=== PATIENT | female | born 1965 ===

== ENCOUNTER 2017-02-19 05:09 | Emergency (ER) | payer MEDICAID ==
[2017-02-19 05:27] VITALS: BP 158/78; PULSE 78; RESP 16; TEMP 98.8; O2SAT 98
--- NOTE | 2017-02-19 05:32 | ED PDOC ---
HPI: General Adult Time Seen by Provider: 02/19/17 05:17 Chief Complaint (Nursing): Lower Extremity Problem/Injury Chief Complaint (Provider): Ankle pain History Per: Patient Additional Complaint(s): Pt. states yesterday she was walking her dog when her dog pulled her causing her to fall down and strike her R ankle onto the ground. Pt. currently has a cast on her R leg as she has a "50% tear of plantar fascia." Reports that cast was placed on by Dr. Cm. Reports no surgery was done. Denies numbness , tingling, other injury. Past Medical History Reviewed: Historical Data, Nursing Documentation, Vital Signs Vital Signs: Last Vital Signs Temp 98.8 F 02/19/17 05:17 Pulse 78 02/19/17 05:17 Resp 16 02/19/17 05:17 BP 158/78 H 02/19/17 05:17 Pulse Ox 98 02/19/17 05:33 - Medical History PMH: Asthma, Bipolar Disorder, HTN, Hypercholesterolemia Denies: Chronic Kidney Disease - Surgical History Surgical History: Cholecystectomy - Family History Family History: States: No Known Family Hx - Home Medications Home Medications: Ambulatory Orders Medication Instructions Recorded Cefdinir 300 mg PO DAILY 10/01/14 Lurasidone HCl [Latuda] 120 mg PO HS 10/01/14 Metformin HCl 500 mg PO 10/01/14 Mometasone/Formoterol [Dulera 200 500 mg BID 10/01/14 Mcg/5 Mcg Inhaler] Tiotropium [place] [Spiriva] 18 IH 10/01/14 Tiotropium [place] [Spiriva] 18 mcg IH 10/01/14 Esomeprazole Magnesium [Nexium] 40 mg PO DAILY #28 ecc 10/07/16 - Allergies Allergies/Adverse Reactions: Allergies Allergy/AdvReac Type Severity Reaction Status Date / Time Penicillins Allergy RASH Verified 02/19/17 05:17 Review of Systems ROS Statement: Except As Marked, All Systems Reviewed And Found Negative Physical Exam - Physical Exam Appears: Positive for: Well, Non-toxic, No Acute Distress Skin: Positive for: Normal Color, Warm. Negative for: Rash Extremity: Positive for: Capillary Refill (cap refill < 2 seconds of RLE; distal sensation intact and equal), Other (R lower leg cast in place intact) - ECG O2 Sat by Pulse Oximetry: 98 - Progress ED Course And Treament: Ankle x-ray ordered Disposition - Clinical Impression Clinical Impression: Ankle injury - Patient ED Disposition Is Patient to be Admitted: Transfer of Care (Signed out to Dr. Vargas pending xray results.) - Disposition Disposition Time: 06:00 Condition: STABLE
--- NOTE | 2017-02-19 07:02 | ED PDOC ---
- ECG O2 Sat by Pulse Oximetry: 98 (RA) Pulse Ox Interpretation: Normal Medical Decision Making Medical Decision Makin:00 Patient signed out to Tae Vargas MD by SILVIO Call. 07:00 Patient evaluated by podiatry and cast was removed. 07:05 Upon provider reevaluation patient is feeling better, is medically stable, and requires no further treatment in the emergency department at this time. Patient will be discharged home. Counseling was provided and all questions were answered regarding diagnosis and referred to followup with her pediatrist as per podiatry's recommendation. Patient is in agreement with provider's discharge plan and was prompted to return if symptoms persist or worsen. Clinical Impression: Ankle sprain Scribe Attestation: Documented by Dagoberto De Jesus, acting as a scribe for Tae Vargas MD. Provider Scribe Attestation: All medical record entries made by the Scribe were at my direction and personally dictated by me. I have reviewed the chart and agree that the record accurately reflects my personal performance of the history, physical exam, medical decision making, and the department course for this patient. I have also personally directed, reviewed, and agree with the discharge instructions and disposition. Disposition - Clinical Impression Clinical Impression: Ankle sprain - POA Present On Arrival: Falls Or Trauma - Disposition Disposition: Routine/Home Disposition Time: 07:05 Condition: STABLE Instructions: Ankle Sprain (ED)
--- NOTE | 2017-02-19 07:22 | CP.PCM.CON ---
History of Present Illness - History of Present Illness History of Present Illness: 51 yo female patient presents to the ED this morning w/ chief complaint of right leg and ankle pain. Per pt she was walking her dog yesterday and fell to the ground and hit her right ankle. Of note patient says that she has had a "50 % plantar fascia tear" for the past several months, says she had a cast applied by her frame assembler Dr. Landen Reynolds. Says the cast is bothering her now after she fell yesterday. Denies any numbness or tingling or any other injuries. Review of Systems - Review of Systems Review of Systems: All systems reviewed and found to be negative w/ exception of pertinent HPI findings Past Patient History - Past Social History Smoking Status: Never Smoked - CARDIAC Hx Hypercholesterolemia: Yes Hx Hypertension: Yes - PULMONARY Hx Asthma: Yes - NEUROLOGICAL Hx Neurological Disorder: No - HEENT Hx HEENT Problems: No - RENAL Hx Chronic Kidney Disease: No - ENDOCRINE/METABOLIC Hx Diabetes Mellitus Type 2: Yes Other/Comment: Borderline DM - not on med - HEMATOLOGICAL/ONCOLOGICAL Hx Blood Disorders: Yes Hx Cancer: Yes (right breast cancer) Other/Comment: Lumpectomy in right breast - INTEGUMENTARY Hx Dermatological Problems: No - MUSCULOSKELETAL/RHEUMATOLOGICAL Hx Musculoskeletal Disorders: No - GASTROINTESTINAL Hx Gastrointestinal Disorders: Yes Other/Comment: Hernia - GENITOURINARY/GYNECOLOGICAL Hx Genitourinary Disorders: Yes Other/Comment: Left ovary removed - PSYCHIATRIC Hx Bipolar Disorder: Yes - SURGICAL HISTORY Hx Cholecystectomy: Yes - ANESTHESIA Hx Anesthesia: Yes Meds Allergies/Adverse Reactions: Allergies Allergy/AdvReac Type Severity Reaction Status Date / Time Penicillins Allergy RASH Verified 02/19/17 05:17 Physical Exam - Constitutional Appears: Well, Non-toxic, No Acute Distress - Extremities Exam Extremities exam: Negative for: calf tenderness Additional comments: RLE focused exam: Cast to right lower leg appears c/d/i Upon removal of cast: VASC- DP/PT pulses 2/4, skin temp wnl, cap. refill <3 sec to all digits, slight non-pitting edema noted to lateral ankle DERM- no open wounds, no erythema NEURO- gross pedal sensation is intact ORTHO- pt able to flex and extend all digits freely, tenderness on AJ DF and PF , tenderness to palp of ATFL, tenderness to palpation just posterior to distal fibula - Neurological Exam Neurological exam: Alert, CN II-XII Intact, Oriented x3 - Psychiatric Exam Psychiatric exam: Normal Affect, Normal Mood Results - Vital Signs Recent Vital Signs: Last Vital Signs Temp 98.8 F 02/19/17 05:17 Pulse 78 02/19/17 05:17 Resp 16 02/19/17 05:17 BP 158/78 H 02/19/17 05:17 Pulse Ox 98 02/19/17 07:18 Assessment & Plan - Assessment and Plan (Free Text) Assessment: 51 yo female w/ right leg pain secondary to ankle sprain Plan: Pt S&E at bedside in ED Discussed w/ attending Dr. Andrews and Dr. Vargas Cast removed and new posterior splint applied Advised patient to remain NWB with crutches, may use cast shoe to cover foot Advised pt to follow up w/ frame assembler Dr. Reynolds at the office Recommended rest, ice, elevation Stable per podiatry for D/C home
--- NOTE | 2017-02-19 10:40 | RAD ---
PROCEDURE: Right Ankle Radiographs. HISTORY: . Trauma COMPARISON: None FINDINGS: BONES: Crust obscures fine bony details. There is no acute displaced fracture. Bone alignment is normal. There is a prominent plantar calcaneal spur. JOINTS: Normal. Ankle mortise maintained. Talar dome intact SOFT TISSUES: Normal. OTHER FINDINGS: None. IMPRESSION: Crust obscures fine bony details. No acute displaced fracture or dislocation.
--- NOTE | 2017-02-19 10:43 | RAD ---
PROCEDURE: Radiographs of the right tibia and fibula. HISTORY: Trauma COMPARISON: None available. TECHNIQUE: Frontal and lateral views obtained. FINDINGS: BONES: Cast obscures fine bony details. There is no acute fracture or dislocation. Bone alignment and mineralization are normal. There is curvilinear ossifications at the medial to the medial femoral condyles compatible with medial collateral ligament ossification. JOINT SPACES: Normal. OTHER FINDINGS: None. IMPRESSION: Cast obscures fine bony details. No acute displaced fracture or dislocation.
--- NOTE | 2017-02-19 10:45 | RAD ---
PROCEDURE: Right Foot Radiographs. HISTORY: Trauma COMPARISON: None. FINDINGS: BONES: Fast obscures fine bony details. There is no acute displaced fracture or bone destruction. Bone alignment is normal. There is a prominent plantar calcaneal spur. JOINTS: Normal. SOFT TISSUES: Normal. OTHER FINDINGS: None. IMPRESSION: Crust obscures fine bony details. No acute displaced fracture or dislocation. [facility]
== END 2017-02-19 07:23 | disposition home or self-care (01) ==
LOC: H.ER 05:09
DX: S99.911A Unspecified injury of right ankle, initial encounter (principal); W19.XXXA Unspecified fall, initial encounter; Y92.89 Other specified places as the place of occurrence of the external cause; E78.00 Pure hypercholesterolemia, unspecified; F31.9 Bipolar disorder, unspecified; I10 Essential (primary) hypertension; Z88.0 Allergy status to penicillin; J45.909 Unspecified asthma, uncomplicated

== ENCOUNTER 2017-10-28 03:08 | Emergency (ER) | payer MEDICAID ==
[2017-10-28 03:25] VITALS: RESP 18
[2017-10-28] MEDS ORDERED: Sodium Chloride 0.9% 1,000 ML IV STA ×2 (03:58→06:26)
--- NOTE | 2017-10-28 04:08 | ED PDOC ---
HPI: Abdomen Time Seen by Provider: 10/28/17 03:22 Chief Complaint (Nursing): Abdominal Pain Chief Complaint (Provider): abdominal pain History Per: Patient History/Exam Limitations: no limitations Onset/Duration Of Symptoms: Hrs Current Symptoms Are (Timing): Still Present Location Of Pain/Discomfort: Epigastric Quality Of Discomfort: Sharp, "Pain" Associated Symptoms: Fever, Nausea, Vomiting Additional History Per: Patient Additional Complaint(s): 52 y/o female presents with upper abdominal pain x 6 hours. Associated multiple vomiting episodes, fever 101. Denies cough, congestion, chest pain, shortness of breath, palpitations, changes in bowel movements, recent travel, sick contacts, urinary symptoms. Patient notes red blood on tissue when wiping after bowel movements x 3 days, history of hemorrhoids. Past Medical History Reviewed: Historical Data, Nursing Documentation, Vital Signs Vital Signs: Last Vital Signs Temp 99.6 F 10/28/17 03:20 Pulse 112 H 10/28/17 03:20 Resp 18 10/28/17 03:20 BP 156/81 H 10/28/17 03:20 Pulse Ox 98 10/28/17 05:30 - Medical History PMH: Asthma, Bipolar Disorder, HTN, Hypercholesterolemia Denies: Chronic Kidney Disease - Surgical History Surgical History: Cholecystectomy - Family History Family History: States: Unknown Family Hx - Home Medications Home Medications: Ambulatory Orders Medication Instructions Recorded Cefdinir 300 mg PO DAILY 10/01/14 Lurasidone HCl [Latuda] 120 mg PO HS 10/01/14 Metformin HCl 500 mg PO 10/01/14 Mometasone/Formoterol [Dulera 200 500 mg BID 10/01/14 Mcg/5 Mcg Inhaler] Tiotropium [place] [Spiriva] 18 IH 10/01/14 Tiotropium [place] [Spiriva] 18 mcg IH 10/01/14 Esomeprazole Magnesium [Nexium] 40 mg PO DAILY #28 ecc 10/07/16 - Allergies Allergies/Adverse Reactions: Allergies Allergy/AdvReac Type Severity Reaction Status Date / Time Penicillins Allergy RASH Verified 02/19/17 05:17 Review of Systems ROS Statement: Except As Marked, All Systems Reviewed And Found Negative Gastrointestinal: Positive for: Nausea, Vomiting, Abdominal Pain Physical Exam - Reviewed Nursing Documentation Reviewed: Yes Vital Signs Reviewed: Yes - Physical Exam Appears: Positive for: Well, Non-toxic, No Acute Distress Head Exam: Positive for: ATRAUMATIC, NORMAL INSPECTION, NORMOCEPHALIC Skin: Positive for: Normal Color Eye Exam: Positive for: Normal appearance ENT: Positive for: Normal ENT Inspection Cardiovascular/Chest: Positive for: Regular Rate, Rhythm Respiratory: Positive for: Normal Breath Sounds Gastrointestinal/Abdominal: Positive for: Bowel Sounds, Soft, Tenderness ( epigastric, RUQ) Back: Positive for: Normal Inspection Rectal: Positive for: Hemorrhoids (pink, nonthrombosed), Other (exam manager strategic Lizette Hatfield RN) Extremity: Positive for: Normal ROM Neurologic/Psych: Positive for: Alert, Oriented - Laboratory Results Result Diagrams: 10/28/17 04:20 10/28/17 04:20 - ECG O2 Sat by Pulse Oximetry: 98 - Progress ED Course And Treament: labs, urine, IV fluids, IV zofran, IV pepcid, IV toradol, CT abd/pelvis Disposition - Clinical Impression Clinical Impression: Abdominal pain - Patient ED Disposition Is Patient to be Admitted: No - Disposition Disposition: Transfer of Care Disposition Time: 06:00 Condition: FAIR Forms: [employer] (Turkmen) Patient Signed Over To: Nicola Del Toro Handoff Comments: pending CT
[2017-10-28 04:19] LABS: VENOUS BLOOD GAS BASE EXCESS 0.1 mmol/L (0.0-2.0); VENOUS BLOOD GAS PCO2 39 mmHg (40-60); VENOUS BLOOD GAS PO2 51 mm/Hg (30-55); VENOUS BLOOD PH 7.41 (7.32-7.43)
[2017-10-28 04:41] LABS: BASO % 0.4 % (0.0-2.0); EOS # 0.1 K/uL (0.0-0.7); EOS % 0.7 % (0.0-4.0); HEMOGLOBIN 14.7 g/dL (12.0-16.0); LYMPH # 0.6 K/uL (1.0-4.3); LYMPH % 6.6 % (20.0-40.0); MEAN CELL VOLUME 89.5 fl (81.0-99.0); MEAN CORPUSCULAR HEMOGLOBIN 31.2 pg (27.0-31.0); MEAN CORPUSCULAR HGB CONC 34.9 g/dL (33.0-37.0); MONO # 0.4 K/uL (0.0-0.8); MONO % 4.8 % (0.0-10.0); NEUT # 7.5 K/uL (1.8-7.0); NEUT % 87.5 % (50.0-75.0); PLATELET COUNT 275 K/uL (130-400); RBC 4.71 Mil/uL (3.80-5.20); RED CELL DISTRIBUTION WIDTH 13.3 % (11.5-14.5); WHITE BLOOD COUNT 8.6 K/uL (4.8-10.8)
[2017-10-28 04:53] LABS: ALB/GLOB RATIO 1.4 (1.0-2.1); ALBUMIN 4.3 g/dL (3.5-5.0); ALT/SGPT 70 U/L (9-52); AST/SGOT 48 U/L (14-36); BLOOD UREA NITROGEN 16 mg/dl (7-17); CALCIUM 9.3 mg/dL (8.4-10.2); GFR AFRICAN-AMERICAN > 60; GFR NON-AFRICAN AMERICAN > 60; LIPASE 88 U/L (23-300)
[2017-10-28] MEDS ORDERED: Iohexol 240 (50 ml) PO ONE (04:58)
[2017-10-28 06:01] LABS: BANDS 1 % (0-2); EOSINOPHIL 1 % (0-7); LYMPHOCYTE 12 % (20-50); MONOCYTE 5 % (0-10); NEUTROPHIL 81 % (42-75); TOTAL CELLS COUNTED 100
[2017-10-28 06:02] LABS: PLATELET ESTIMATE NORMAL (NORMAL)
--- NOTE | 2017-10-28 06:29 | ED PDOC ---
- Laboratory Results Result Diagrams: 10/28/17 04:20 10/28/17 04:20 - ECG O2 Sat by Pulse Oximetry: 98 (RA) Pulse Ox Interpretation: Normal Medical Decision Making Medical Decision Making: Time: 06:00 Patient signed out to me by Bna Glover pending CT scan. Time: 6:26 - Sodium Chloride 0.9% 1,000 ml IV I,000 mls/hr - Protonix Inj - Reglan 10 mg IVPB Time: 07:00 Patient to be signed out to Dr. Betancur pending CT scan. Scribe Attestation: Documented by Rudolph Nieves, acting as a scribe for Nicola Del Toro MD Provider Scribe Attestation: All medical record entries made by the Scribe were at my direction and personally dictated by me. I have reviewed the chart and agree that the record accurately reflects my personal performance of the history, physical exam, medical decision making, and the department course for this patient. I have also personally directed, reviewed, and agree with the discharge instructions and disposition. Disposition - Clinical Impression Clinical Impression: Abdominal pain - POA Present On Arrival: None - Disposition Disposition: Transfer of Care Disposition Time: 07:00 Condition: FAIR Forms: [employer] (Moroccan) Patient Signed Over To: Jody Betancur Handoff Comments: pending reassessment and CT
--- NOTE | 2017-10-28 07:37 | ED PDOC ---
- Laboratory Results Result Diagrams: 10/28/17 04:20 10/28/17 04:20 - ECG O2 Sat by Pulse Oximetry: 98 (RA) - Progress Re-evaluation Time: 09:45 Condition: Improved (Pt feels better, tolerated PO. ) Medical Decision Making Medical Decision Making: Accession No. : [id number] Patient Name / ID : EBENEZER TSANG / [id number] Exam Date : 10/28/2017 08:25:13 ( Approved ) Study Comment : Sex / Age : F / 52Y Creator : Alexy Montague MD Dictator : Alexy Montague MD Database Report Writer : Psychiatric Clinician : Alexy Montague MD Approver2 : Report Date : 10/28/2017 09:08:04 My Comment : PROCEDURE: CT Abdomen and Pelvis with contrast HISTORY: Abd pain, vomiting COMPARISON: 10/25/2010 TECHNIQUE: Contrast dose: 95 cc Omnipaque 300 Radiation dose: Total exam DLP = 1122.22 mGy-cm. This CT exam was performed using one or more of the following dose reduction techniques: Automated exposure control, adjustment of the mA and/or kV according to patient size, and/or use of iterative reconstruction technique. FINDINGS: LOWER THORAX: Small hiatal hernia LIVER: Hepatic steatosis. No focal masses. No intrahepatic bile duct dilatation or perihepatic ascites. GALLBLADDER AND BILE DUCTS: Status post cholecystectomy. No abnormality is seen in the gallbladder fossa. PANCREAS: Unremarkable. No gross lesion or ductal dilatation. SPLEEN: Unremarkable. ADRENALS: Unremarkable. No mass. KIDNEYS AND URETERS: Unremarkable. No hydronephrosis. No solid mass. VASCULATURE: Unremarkable. No aortic aneurysm. BOWEL: Unremarkable. No obstruction. No gross mural thickening. Diverticulosis without an acute inflammatory component or other associated pathologic process. APPENDIX: Normal appendix. PERITONEUM: Unremarkable. No free fluid. No free air. LYMPH NODES: Unremarkable. No enlarged lymph nodes. BLADDER: Unremarkable. REPRODUCTIVE: Unremarkable. BONES: No acute fracture. OTHER FINDINGS: None. IMPRESSION: No acute findings related to/accounting for the clinical presentation. Additional benign and/or incidental findings described above. Disposition - Clinical Impression Clinical Impression: Gastritis - POA Present On Arrival: None - Disposition Referrals: [facility] [Outside] Disposition: Routine/Home Disposition Time: 09:52 Condition: STABLE Prescriptions: Famotidine [Pepcid] 20 mg PO BID #20 tab Ondansetron ODT [Zofran ODT] 4 mg PO Q8H PRN #20 odt PRN Reason: Nausea/Vomiting Instructions: Gastritis (ED) Forms: [employer] (Romanian) Addendum Addendum: 10/28/17 07:00 Pt signed out by Dr. Del Toro pending CT.
[2017-10-28 07:58] VITALS: BP 132/70; PULSE 92; TEMP 97.9
[2017-10-28] MEDS ORDERED: Iohexol 300 100 ML IJ ONE (08:15)
[2017-10-28] MEDS ORDERED: Sodium Chloride 0.9% 50 ML IV ONE (08:15)
--- NOTE | 2017-10-28 09:09 | CT ---
PROCEDURE: CT Abdomen and Pelvis with contrast HISTORY: Abd pain, vomiting COMPARISON: 10/25/2010 TECHNIQUE: Contrast dose: 95 cc Omnipaque 300 Radiation dose: Total exam DLP = 1122.22 mGy-cm. This CT exam was performed using one or more of the following dose reduction techniques: Automated exposure control, adjustment of the mA and/or kV according to patient size, and/or use of iterative reconstruction technique. FINDINGS: LOWER THORAX: Small hiatal hernia LIVER: Hepatic steatosis. No focal masses. No intrahepatic bile duct dilatation or perihepatic ascites. GALLBLADDER AND BILE DUCTS: Status post cholecystectomy. No abnormality is seen in the gallbladder fossa. PANCREAS: Unremarkable. No gross lesion or ductal dilatation. SPLEEN: Unremarkable. ADRENALS: Unremarkable. No mass. KIDNEYS AND URETERS: Unremarkable. No hydronephrosis. No solid mass. VASCULATURE: Unremarkable. No aortic aneurysm. BOWEL: Unremarkable. No obstruction. No gross mural thickening. Diverticulosis without an acute inflammatory component or other associated pathologic process. APPENDIX: Normal appendix. PERITONEUM: Unremarkable. No free fluid. No free air. LYMPH NODES: Unremarkable. No enlarged lymph nodes. BLADDER: Unremarkable. REPRODUCTIVE: Unremarkable. BONES: No acute fracture. OTHER FINDINGS: None. IMPRESSION: No acute findings related to/accounting for the clinical presentation. Additional benign and/or incidental findings described above.
[2017-10-28 09:56] VITALS: O2SAT 98
== END 2017-10-28 10:00 | disposition home or self-care (01) ==
LOC: H.ER 03:08
DX: K29.70 Gastritis, unspecified, without bleeding (principal); E78.00 Pure hypercholesterolemia, unspecified; F31.9 Bipolar disorder, unspecified; I10 Essential (primary) hypertension; J45.909 Unspecified asthma, uncomplicated; Z88.0 Allergy status to penicillin
CPT/HCPCS: 74177; 80053; 81025; 82803; 83690; 85025; 87040; 96361; 96374; 96375; 99285; C9113; G0328; J1885; J2405; J2765; J7040; Q9966; Q9967